=== PATIENT | female | born 1945 | race Caucasian/White ===

== ENCOUNTER → 2024-02-27 13:31 | Outpatient (REF) | payer MEDICARE, OTHER, SELFPAY ==
[2024-02-27 14:07] LABS: % Basophils 0.9 % (0-2); % Eosinophils 1.8 % (0-6); % Immature Granulocytes 0.5 % (0-0.5); % Monocytes 7.2 % (1.7-9.3); % Neutrophils 70.6 % (42.2-75.2); Absolute Basophils 0.1 10^3/uL (0-0.2); Absolute Eosinophils 0.3 10^3/uL (0-0.7); Absolute Immature Granulocytes 0.1 10^3/uL (0-0.05); Absolute Lymphocytes 2.8 10^3/uL (1.2-3.4); Absolute Monocytes 1.1 10^3/uL (0.1-0.6); Absolute Neutrophils 10.3 10^3/uL (1.4-6.5); Hemoglobin 10.9 g/dL (12.0-16.0); Mean Corp Hgb Conc. 31.1 g/dL (33.0-37.0); Mean Corpuscular Hgb 23.9 pg (27.0-31.0); Mean Corpuscular Volume 76.6 fL (81.0-99.0); Mean Platelet Volume 9.3 fL (7.4-10.4); Nucleated Red Blood Cells % 0 %; Platelet Count 391 10^3/uL (130-400); Red Blood Cell Count 4.57 10^6/uL (4.20-5.40); Red Cell Dist. Width 16.2 % (11.5-14.5); White Blood Cell Count 14.6 10^3/uL (4.8-10.8)
[2024-02-27 14:35] LABS: Blood Urea Nitrogen 27 mg/dl (7-17); Calcium 9.8 mg/dl (8.4-10.2); Carbon Dioxide 23 mmol/L (22-30); Chloride 105 mmol/L (98-107); Glucose 124 mg/dl (70-99); Potassium 4.4 mmol/L (3.5-5.1); Sodium 137 mmol/L (135-145); eGFR 51.43
== END ==
LOC: SDSPAT 13:31
PROVIDERS: ATTENDING PHYSICIAN Orthopaedic Surgery Hand Surgery; FAMILY PHYSICIAN Family Medicine
DX: Z01.818 Encounter for other preprocedural examination (principal)
CPT/HCPCS: 36415; 80048; 85025; 93005

== ENCOUNTER 2024-02-28 05:51 | Day surgery (SDC) | payer MEDICARE, OTHER, SELFPAY ==
[2024-02-27 13:48] VITALS: BMI 33.4
--- NOTE | 2024-02-27 17:00 | PTCARENOTE ---
Abn Creatinine, Anusha at [facility] office notified.
--- NOTE | 2024-02-27 17:09 | PTCARENOTE ---
Abn ECG, Dr. Newsome Aware, no new requests.
[2024-02-28] VITALS (8 sets, daily range): BP systolic 98–153; BP diastolic 40–67; BMI 33.4
[2024-02-28] MEDS: TYLENOL 1000 MG PO (06:18)
[2024-02-28] MEDS: CELEBREX 200 MG PO (06:18)
[2024-02-28] MEDS: NORMOSOL-R 1000 IV (06:32)
== END 2024-02-28 09:10 | disposition home or self-care (01) ==
LOC: SDS 05:51
PROVIDERS: ATTENDING PHYSICIAN Orthopaedic Surgery Hand Surgery; FAMILY PHYSICIAN Family Medicine
DX: S62.616A Displaced fracture of proximal phalanx of right little finger, initial encounter for closed fracture (principal); X58.XXXA Exposure to other specified factors, initial encounter
CPT/HCPCS: 26727; C1713